=== PATIENT | female | born 1980 | race Caucasian/White ===

== ENCOUNTER 2018-04-23 07:02 | Emergency (ER) | payer OTHER ==
[~2018-04-23] VITALS: Ht 157.5 cm; Wt 77.3 kg
[~2018-04-23 07:02] MED LIST: AMBIEN 10MG10 MG PO; AMOXICILLIN 50500 MG PO; ATIVAN 1MG T1 MG/TAB PO; BUTRANS10 MCG/HR TD; EXCEDRIN TENSIO1 CAP PO; FENTANYL 25 MCG TOP; FENTANYL 50MCG TD; IBU800 M1 PO; INDERAL80 MG PO; LEXAPRO 10MG10 MG; LUNESTA3 MG PO; LYRICA 50MG CAP50 MG PO; MACROBID 1100 MG/CAP PO; MIRAPEX0.25 MG PO; MIRAPEX0.5 MG PO; NO HOME MEDICATIONS; NORCO 325 MG-51 TAB PO; OXYCONTIN 10MG10 MG PO; PEN-VEE K500 MG PO; PEPCID 20MG TAB20 MG PO; PERCOCET 325 MG1 TA2 PO; PERCOCET 325 MG1 TAB PO; PHENERGAN 25 TA25 MG PO; PRENATAL1 TA1 PO; PRENATAL1 TA2 PO; SAVELLA50 MG PO; TOPAMAX50 MG PO; UNISOM25 MG PO; WELLBUTRIN XL300 M1 PO; XANAX 0.5MG0.5 MG PO; ZOFRAN 4MG T4 MG/TAB PO; ZOLOFT 25MG25 MG; [UNRECOGNIZED DRUG - OTHER] PO
[2018-04-23 07:08] VITALS: TEMP 97.9
[2018-04-23 08:07] LABS: BASO % 0.3 % (0.0-2.0); EOS % 0.1 % (0-4.0); GRAN # 5.6 (1.4-6.5); GRAN % 73.8 % (42.2-75.2); HEMATOCRIT 40.5 % (37.0-47.0); HEMOGLOBIN 13.7 g/dl (12.5-16.0); LYMPH # 1.5 (1.2-3.4); LYMPH % 19.2 % (20.0-51.0); MEAN CELL VOLUME 92 fl (80.0-100.0); MEAN CORPUSCULAR HEMOGLOBIN 31 pg (27.0-31.0); MEAN CORPUSCULAR HGB CONC 34 g/dl (33.0-37.0); MEAN PLATELET VOLUME 11.8 fl (7.4-10.4); MONO # 0.5 (0.1-0.6); MONO % 6.2 % (1.7-9.3); PLATELET COUNT 282 K/mm3 (130-400); RED BLOOD COUNT 4.39 M/mm3 (4.10-5.30); REDCELL DISTRIBUTION WIDTH-CV 12.7 % (11.5-14.5)
[2018-04-23 08:20] LABS: ALANINE AMINOTRANSFERASE 30 U/L (9-52); ALBUMIN 4.8 gm/dL (3.5-5.0); ALKALINE PHOSPHATASE 103 U/L (50-136); ANION GAP 12 mmol/L (7-16); AST,SGOT 21 U/L (15-37); BILIRUBIN,TOTAL 0.9 mg/dL (0.0-1.0); BLOOD UREA NITROGEN 13 mg/dL (7-17); CALCIUM 10.6 mg/dL (8.4-10.2); CARBON DIOXIDE 24 mmol/L (22-30); CHLORIDE 108 mmol/L (98-107); CREATININE, serum 0.69 mg/dL (0.52-1.25); GLUCOSE 114 mg/dL (74-106); LIPASE 36 U/L (23-300); POTASSIUM 3.6 mmol/L (3.4-5.0); SODIUM 144 mmol/L (137-145); TOTAL PROTEIN 8.4 gm/dL (6.4-8.2)
[2018-04-23] MEDS ORDERED: PHENERGAN 25 TA25 MG PO ×2 (08:21)
[2018-04-23 08:28] LABS: C-REACTIVE PROTEIN < 0.5 mg/dL (0.0-0.9)
[2018-04-23 08:45] LABS: COLLECTION METHOD CLEAN CATCH
[2018-04-23 08:56] LABS: MUCOUS Present /lpf; PH 5 (5-8); SQUAMOUS EPITHELIAL 20-50 /hpf; URINE APPEARANCE Cloudy; URINE BACTERIA Moderate /hpf; URINE BILIRUBIN Negative (NEGATIVE); URINE BLOOD Negative (NEGATIVE); URINE COLOR Yellow; URINE GLUCOSE Negative (NEGATIVE); URINE KETONE 1+ (NEGATIVE); URINE LEUKOCYTE ESTERASE Negative (NEGATIVE); URINE NITRATE Negative (NEGATIVE); URINE PROTEIN(semi-quant) 1+ (NEGATIVE); URINE UROBILINOGEN Negative (NEGATIVE)
[2018-04-23] MEDS ORDERED: ZOFRAN ODT4 MG PO (09:14)
[2018-04-23 09:26] VITALS: BP 109/76; PULSE 67
[2018-04-25] MEDS ORDERED: BACTRIM DS 8001 TAB PO (10:28)
== END 2018-04-23 09:28 | disposition home or self-care (01) ==
LOC: COL.ER 07:02
PROVIDERS: Emergency Medicine
DX: R11.2 Nausea with vomiting, unspecified (principal); R19.7 Diarrhea, unspecified; R10.9 Unspecified abdominal pain; M79.7 Fibromyalgia
CPT/HCPCS: J0780; J1170; J7030

== ENCOUNTER 2018-08-15 05:58 | Emergency (ER) | payer OTHER ==
[~2018-08-15] VITALS: Ht 157.5 cm; Wt 79.5 kg
[~2018-08-15 05:58] MED LIST changes: +BACTRIM DS 8001 TAB PO; +ZOFRAN ODT4 MG PO
[2018-08-15 06:02] VITALS: BP 152/81; TEMP 97
[2018-08-15 06:52] VITALS: PULSE 93
== END 2018-08-15 06:53 | disposition home or self-care (01) ==
LOC: COL.ER 05:58
DX: G89.29 Other chronic pain (principal); M54.5 Low back pain; M79.7 Fibromyalgia; F17.210 Nicotine dependence, cigarettes, uncomplicated
CPT/HCPCS: J1170

== ENCOUNTER 2018-09-10 22:35 | Emergency (ER) | payer OTHER ==
[~2018-09-10] VITALS: Ht 157.5 cm; Wt 81.8 kg
[2018-09-10 22:39] VITALS: BP 133/86; PULSE 115; TEMP 98
[2018-09-10 23:51] LABS: BASO % 0.3 % (0.0-2.0); EOS % 0.1 % (0-4.0); GRAN # 5.8 (1.4-6.5); GRAN % 75.2 % (42.2-75.2); HEMATOCRIT 44.3 % (37.0-47.0); LYMPH # 1.4 (1.2-3.4); LYMPH % 18.5 % (20.0-51.0); MEAN CELL VOLUME 91 fl (80.0-100.0); MEAN CORPUSCULAR HEMOGLOBIN 31 pg (27.0-31.0); MEAN CORPUSCULAR HGB CONC 34 g/dl (33.0-37.0); MEAN PLATELET VOLUME 10.9 fl (7.4-10.4); MONO # 0.5 (0.1-0.6); MONO % 5.8 % (1.7-9.3); PLATELET COUNT 321 K/mm3 (130-400); RED BLOOD COUNT 4.85 M/mm3 (4.10-5.30); REDCELL DISTRIBUTION WIDTH-CV 12.3 % (11.5-14.5)
[2018-09-11 00:04] LABS: ALBUMIN 4.9 gm/dL (3.5-5.0); BILIRUBIN,TOTAL 0.7 mg/dL (0.0-1.0); CALCIUM 10.8 mg/dL (8.4-10.2); CREATININE, serum 0.65 (0.52-1.25); POTASSIUM 3.8 mmol/L (3.4-5.0); TOTAL PROTEIN 9.4 gm/dL (6.4-8.2)
[2018-09-11 01:15] LABS: COLLECTION METHOD CLEAN CATCH
[2018-09-11 01:32] LABS: MUCOUS Present /lpf; PH 5 (5-8); URINE APPEARANCE Hazy; URINE BACTERIA Rare /hpf; URINE BILIRUBIN Negative (NEGATIVE); URINE BLOOD 1+ (NEGATIVE); URINE CALCIUM OXALATE CRYSTAL Present /hpf; URINE COLOR Yellow; URINE GLUCOSE Negative (NEGATIVE); URINE KETONE 2+ (NEGATIVE); URINE LEUKOCYTE ESTERASE Trace (NEGATIVE); URINE NITRATE Negative (NEGATIVE); URINE PROTEIN(semi-quant) 1+ (NEGATIVE); URINE UROBILINOGEN Negative (NEGATIVE)
[2018-09-11] MEDS ORDERED: ZOFRAN ODT4 MG SL (07:26)
[2018-09-11] MEDS ORDERED: PHENERGAN 25 TA25 MG PO (08:21)
== END 2018-09-11 02:50 | disposition home or self-care (01) ==
LOC: COL.ER 22:35
PROVIDERS: Emergency Medicine
DX: R10.12 Left upper quadrant pain (principal); R10.32 Left lower quadrant pain; M79.7 Fibromyalgia; F41.9 Anxiety disorder, unspecified; Z98.51 Tubal ligation status; F17.210 Nicotine dependence, cigarettes, uncomplicated
CPT/HCPCS: C9113; J1170; J2765; J7030

== ENCOUNTER 2018-09-11 07:55 | Emergency (ER) | payer OTHER ==
[~2018-09-11] VITALS: Ht 157.5 cm; Wt 81.8 kg
[~2018-09-11 07:55] MED LIST changes: +ZOFRAN ODT4 MG SL
[2018-09-11] MEDS ORDERED: PHENERGAN 25 TA25 MG PO (08:21)
[2018-09-11 08:54] VITALS: BP 132/90
[2018-09-11 09:02] LABS: BASO % 0.1 % (0.0-2.0); EOS % 0.1 % (0-4.0); GRAN # 5.8 (1.4-6.5); GRAN % 77.8 % (42.2-75.2); HEMATOCRIT 38.7 % (37.0-47.0); LYMPH # 1.3 (1.2-3.4); LYMPH % 16.7 % (20.0-51.0); MEAN CELL VOLUME 93 fl (80.0-100.0); MEAN CORPUSCULAR HEMOGLOBIN 31 pg (27.0-31.0); MEAN CORPUSCULAR HGB CONC 33 g/dl (33.0-37.0); MEAN PLATELET VOLUME 11.2 fl (7.4-10.4); MONO # 0.4 (0.1-0.6); PLATELET COUNT 272 K/mm3 (130-400); RED BLOOD COUNT 4.18 M/mm3 (4.10-5.30); REDCELL DISTRIBUTION WIDTH-CV 12.4 % (11.5-14.5)
[2018-09-11 09:11] LABS: ALANINE AMINOTRANSFERASE 21 U/L (9-52); ALBUMIN 4.4 gm/dL (3.5-5.0); ALKALINE PHOSPHATASE 114 U/L (50-136); ANION GAP 13 mmol/L (7-16); AST,SGOT 21 U/L (15-37); BILIRUBIN,TOTAL 0.6 mg/dL (0.0-1.0); BLOOD UREA NITROGEN 17 mg/dL (7-17); CALCIUM 9.6 mg/dL (8.4-10.2); CARBON DIOXIDE 22 mmol/L (22-30); CHLORIDE 108 mmol/L (98-107); CREATININE, serum 0.61 (0.52-1.25); GLUCOSE 112 mg/dL (74-106); LIPASE 38 U/L (23-300); POTASSIUM 3.4 mmol/L (3.4-5.0); SODIUM 143 mmol/L (137-145); TOTAL PROTEIN 8.2 gm/dL (6.4-8.2)
[2018-09-11 09:18] LABS: COLLECTION METHOD CLEAN CATCH
[2018-09-11 09:22] LABS: C-REACTIVE PROTEIN < 0.5 mg/dL (0.0-0.9)
[2018-09-11 09:28] LABS: HEMOGLOBIN 12.9 g/dl (12.5-16.0)
[2018-09-11 09:30] LABS: MUCOUS Present /lpf; PH 5 (5-8); URINE APPEARANCE Hazy; URINE BACTERIA None Seen /hpf; URINE BILIRUBIN Negative (NEGATIVE); URINE BLOOD 1+ (NEGATIVE); URINE COLOR Yellow; URINE GLUCOSE Negative (NEGATIVE); URINE KETONE 2+ (NEGATIVE); URINE LEUKOCYTE ESTERASE Negative (NEGATIVE); URINE NITRATE Negative (NEGATIVE); URINE PROTEIN(semi-quant) Negative (NEGATIVE); URINE UROBILINOGEN Negative (NEGATIVE)
[2018-09-11 10:36] VITALS: PULSE 71; TEMP 98.4
== END 2018-09-11 10:45 | disposition home or self-care (01) ==
LOC: COL.ER 07:55
PROVIDERS: Emergency Medicine
DX: R19.7 Diarrhea, unspecified (principal); R11.2 Nausea with vomiting, unspecified; R10.84 Generalized abdominal pain; M79.7 Fibromyalgia; Z98.51 Tubal ligation status; F17.210 Nicotine dependence, cigarettes, uncomplicated
CPT/HCPCS: J1200; J1630; J2060; J7030